=== PATIENT | female | born 1985 ===

== ENCOUNTER 2023-02-19 09:15 | Inpatient (IN) | payer OTHER ==
[~2023-02-19] VITALS: Ht 162.6 cm; Wt 62.1 kg
[2023-02-23 07:50] LABS: HEMATOCRIT 30.1 % (36.0-45.00); HEMOGLOBIN 9.9 g/dL (12.0-15.00); MEAN CELL VOLUME 79.1 fL (80.00-100.00); MEAN CORPUSCULAR HGB CONC 32.9 g/dl (32.0-36.0); PLATELET COUNT 298 K/uL (150-450); RED BLOOD COUNT 3.81 M/uL (4.00-6.00); RED CELL DISTRIBUTION WIDTH 19.7 % (11.5-14.5)
== END 2023-02-25 11:48 | disposition home or self-care (01) | DRG 743 ==
LOC: SURH 02-22 09:15 → O/R 02-22 14:38 → OB/GYN 02-23 00:41
PROVIDERS: ADMIT Specialist; ATTEND Specialist
PROC: 0UT70ZZ Resection of Bilateral Fallopian Tubes, Open Approach (ICD-10-PCS; 2023-02-22)
PROC: 0UB00ZZ Excision of Right Ovary, Open Approach (ICD-10-PCS; 2023-02-22)
PROC: 0UT90ZZ Resection of Uterus, Open Approach (ICD-10-PCS; principal; 2023-02-22 17:30)
DX: D25.2 Subserosal leiomyoma of uterus (principal); N84.1 Polyp of cervix uteri; Z20.822 Contact with and (suspected) exposure to COVID-19